=== PATIENT | female | born 1975 | race Caucasian/White ===

== ENCOUNTER 2017-02-09 11:29 | Day surgery (SDC) | payer OTHER | END 2017-02-09 14:54 | disposition home or self-care (01) | DX: C76.2 Malignant neoplasm of abdomen (principal); K66.8 Other specified disorders of peritoneum; Z79.899 Other long term (current) drug therapy; Z85.43 Personal history of malignant neoplasm of ovary; Z91.041 Radiographic dye allergy status; Z87.891 Personal history of nicotine dependence; Z90.710 Acquired absence of both cervix and uterus ==